=== PATIENT | female | born 1960 | race African-American/Black ===

== ENCOUNTER 2021-11-21 08:26 | Outpatient (CLI) | payer BC | END 2021-11-21 08:27 | disposition home or self-care (01) | LOC: NM 08:26 → EDSTATUS 13:00 | PROVIDERS: ATTEND Otolaryngology Otolaryngic Allergy | DX: E83.52 Hypercalcemia (principal) | CPT/HCPCS: 78072; A9500 ==

== ENCOUNTER 2022-10-21 10:23 | Outpatient (CLI) | payer BC | END 2022-10-21 10:24 | disposition home or self-care (01) | LOC: NM 10:23 | PROVIDERS: ATTEND Nurse Practitioner Family | DX: E21.3 Hyperparathyroidism, unspecified (principal) | CPT/HCPCS: 78072; A9500 ==